=== PATIENT | female | born 1950 | race Caucasian/White ===

== ENCOUNTER 2018-01-30 15:37 | Inpatient (IN) | payer MEDICAID ==
[~2018-01-30] VITALS: Ht 172.7 cm; Wt 114.1 kg
--- NOTE | ~2018-01-30 | PR ---
[place], [place] PROGRESS NOTE NAME: MAICOL WELLER UNIT #: [id number] ROOM: 317 DOCTOR: MAYDA TOMLINSON MD BIRTHDATE: [birth year] DOS: 02/02/2018 CHIEF COMPLAINT: "I want to go back to [facility]." SUMMARY OF THE VISIT: The patient was interviewed in the dining area. At first she either ignored me purposefully or was sleeping. In either case, she did not respond at first, after prompting her repeatedly she eventually did begin to interact appropriately. She did state that she would like to go back to [facility] and is missing her friends there. She was very appropriate at no point where she vulgar or agitated. Nurses report similar behavior and a gradual trend toward improvement where her behavior has been much more compliant and less in need of redirection. Outwardly, she is also tolerating the medications well and other than some mild somnolence is noting no other side effects. I do not see the presence of extrapyramidal symptoms or tardive dyskinesia. MENTAL STATUS: She is alert and oriented. Mood does seem to be strongly trending towards euthymia. Affect is much more appropriate. There is no gypsy or hypomania. No gross psychosis. Memory for the most part is intact with mild gaps. PLAN: She received the initial dose of Invega Sustenna 234 mg IM on 01/31/2018. I will go ahead and order her secondary loading dose of Invega Sustenna 156 mg IM monthly, starting on 02/04/2018 that all allows us to monitor for risk, benefits throughout the weekend. If she continues to improve with the medications, we will be able to discharge back to [facility] when psychiatrically stable. MAYDA TOMLINSON MD CM:PNTRANS [id number] MAYDA TOMLINSON MD 02/02/181216 interface
--- NOTE | ~2018-01-30 | PR ---
[place], [place] PROGRESS NOTE NAME: MAICOL WELLER UNIT #: [id number] ROOM: 317 DOCTOR: MAYDA TOMLINSON MD BIRTHDATE: [birth year] DOS: 02/03/2018 INTERVAL NOTE CHIEF COMPLAINT: "I want to go back to [facility]." SUMMARY OF THE VISIT: The patient was interviewed in the dining area, at first she was sleeping, but she awoke easily and engaged readily in conversation. She has been very pleasant and bright. She has not been verbally or physically aggressive now for sometime and has been tolerating the current medication regimen well. She is anxious to return to [facility] and is homesick to be around her friends and the people who have worked with her. Outwardly, she is tolerating the medicines well. I see no evidence of sedation, somnolence, extrapyramidal symptoms or tardive dyskinesia. PLAN: At this point, she will get her secondary loading dose of Invega Sustenna of 156 mg IM tomorrow. I will then monitor over the next 24-48 hours for the development of side effects and further improvement. Should she tolerate this medication well, I will proceed with discharge back to [facility]. MAYDA TOMLINSON MD CM:PNTRANS [phone] MAYDA TOMLINSON MD 02/03/18 1656 interface
--- NOTE | ~2018-01-30 | PR ---
[place], [place] PROGRESS NOTE NAME: MAICOL WELLER UNIT #: [id number] ROOM: 317 DOCTOR: MAYDA TOMLINSON MD BIRTHDATE: [birth year] DOS: 02/01/2018 CHIEF COMPLAINT: "Everyone at [facility] are my friends, I love it there." SUMMARY OF THE VISIT: The patient was interviewed as she was sitting with the sitter in the group therapy room. The patient actually engaged in reasonable conversation. She was able to appropriately answer my questions, reporting that she slept well, had a good breakfast. She lives in [place] at a place called [facility] and everyone there is her friend. After conversing with me for some time, she did request that I leave, stating that I made her uncomfortable. I was accompanied by a female resident and med student and I did ask her if she would feel more comfortable talking to them. She asked them to leave as well, but in a polite manner. Outwardly, she does seem to be tolerating the medication regimen well. I see no tardive dyskinesia, extrapyramidal symptoms, sedation or somnolence. MENTAL STATUS: She is alert and oriented to person, place, seems to be approximate to time. Mood does seem to be trending toward euthymia already. Speech rate and pattern is much more pleasant and cooperative. There is no gypsy or hypomania noted. There are no voice psychotic symptoms. No threats were made and no agitation was present. Short term, intermediate and long-term memory for the most part seem relatively intact. PLAN: I will increase her Thorazine from 75 mg 3 times a day to 100 mg 3 times a day, continuing her other psychotropics, continue to engage in individual and buckley milieu activity with the plan to return to [facility] when psychiatrically stable. MAYDA TOMLINSON MD CM:PNTRANS [id number] MAYDA TOMLINSON MD 02/01/18 161 interface
--- NOTE | ~2018-01-30 | DS ---
[place], [place] DISCHARGE SUMMARY NAME: MAICOL WELLER UNIT #: [id number] ROOM: 317 DOCTOR: MAYDA TOMLINSON MD BIRTHDATE: [birth year] DOS: 02/06/2018 CHIEF COMPLAINT: The patient did not speak to me. HISTORY OF PRESENT ILLNESS: This is a 67-year-old white female known to me from her stay at [facility], a long-term care facility in [place] for the mentally retarded. The patient apparently has a lengthy history of schizoaffective disorder. She has become increasingly psychotic over the last 3-4 weeks prior to this admission. The patient has not been sleeping well. She has not been eating well nor has she attended to her ADLs. She has been very grossly psychotic and has been telling staff that she was going to go into their homes and kill their babies and their children. When attempted to be redirected, she would become extremely physically aggressive and would strike out at staff. She has broken multiple things well at the facility, kicking out windows, breaking the toilet and ruining a door. The patient has not responded to attempts to adjust her medications while in the facility and it was felt that she represented a substantial risk of harm to self and others, so she was admitted to the U to rule out further organic factors, to attempt to stabilize on medication, to engage in individual and buckley milieu activity, returning then to the least restrictive environment when psychiatrically stable. SUMMARY OF HOSPITAL COURSE: The patient was admitted to the unit where I had immediately discontinued her Haldol and increased her Valium from 10 mg twice a day to 10 mg 3 times a day. In lieu of the Haldol, I did start Thorazine 75 mg 3 times daily. This did seem to help her fairly quickly and she tolerated it well without sedation or somnolence. Eventually, I increased the Thorazine to 100 mg 3 times a day with excellent results. The patient did present on Invega, which she had been episodically compliant with well at the facility, to improve compliance, I did load her with Invega Sustenna 234 mg IM with a subsequent secondary loading dose of 156 mg as well. With this combination of dual antipsychotics, the patient dramatically improved. She became much more pleasant and bright. There was no agitation or aggression. There is no mood lability or hostility. She tolerated the medicines without sedation, somnolence, extrapyramidal symptoms or tardive dyskinesia. She had improved rapidly and had responded well enough that she could return back to [facility] on 02/06/2018. MENTAL STATUS AT DISCHARGE: The patient is alert and oriented with some time gaps. Mood was strongly trending towards euthymia. Affect was much more appropriate. There was no gypsy, hypomania or gross psychotic symptoms. Short term memory had some gaps, but otherwise she was intact. FINAL DIAGNOSES UPON DISCHARGE: Schizoaffective disorder. DISPOSITION: All of her prescriptions have been printed and will be sent with her. I will be her treating psychiatrist of record at [facility]. At the time of discharge, she was psychiatrically stable. There were no acute medical issues. [place], [place] DISCHARGE SUMMARY NAME: MAICOL WELLER UNIT #: [id number] ROOM: [facility] DOCTOR: MAYDA TOMLINSON MD BIRTHDATE: [birth year] MAYDA TOMLINSON MD CM:DISCHARG [id number] MAYDA TOMLINSON MD 02/06/18 1720 interface
--- NOTE | ~2018-01-30 | WRIGHTHP ---
[place], [place] PATIENT HISTORY AND PHYSICAL EXAM NAME: MAICOL WELLER UNIT #: [id number] ROOM: 317 DOCTOR: MAYDA TOMLINSON MD BIRTHDATE: [birth year] DOS: 01/31/2018 INITIAL PSYCHIATRIC EVALUATION CHIEF COMPLAINT: "The patient did not speak to me." HISTORY OF PRESENT ILLNESS: This is a 67-year-old white female known to me from her stay at [facility], a [facility] individuals. The patient apparently has a lengthy history of schizoaffective disorder. She has become increasingly psychotic over the last 3-4 weeks prior to this admission. During this period of time, she has not been sleeping well, eating well or attending to her ADLs. She has been grossly psychotic and has been telling staff that she is going to go to their homes to kill their babies and children. When attempted to be redirected, the patient has become extremely physically aggressive and she has struck out at staff. She has broken things and has thrown things at staff. She has kicked out windows and broken the toilet while at the [facility]. The patient has not responded to attempts to adjust her medications and in fact has actually gotten worse over the last week prior to this admission. She is admitted now to rule out any organic factors to attempt to re-stabilize on medication, to engage in individual and buckley milieu, if at all possible returning then to [facility] or the least restrictive environment when psychiatrically stable. PAST MEDICAL HISTORY: Remarkable for a long history of schizoaffective disorder, diabetes, hypertension, hyperlipidemia, left ventricular hypertrophy, lumbar radiculopathy, lumbar spinal stenosis, obesity, osteoarthritis. SOCIAL HISTORY: The patient does not drink alcohol. She has never smoked cigarettes or used smokeless tobacco products, nor does she use illicit drugs. ALLERGIES: She lists allergies to STRAWBERR[employer] EXTRACT. STRENGTHS: Good verbal skills, supportive living environment. WEAKNESSES: Long-term chronic psychiatric illness and poor coping skills. MENTAL STATUS: My mental status is limited this morning based on the patient's lack of cooperation. Initially, she was attempted to be interviewed as she was eating. She was shoveling food in her mouth rapidly and did not respond to me. Shortly after leaving her to go round on other individuals, I heard a very loud crash as she threw her breakfast tray at the window in the group therapy room. Nurses attempted to redirect her and she became physically aggressive with them. DIAGNOSES UPON ADMISSION: Schizoaffective disorder and mild mental retardation. PLAN: I have discontinued her Haldol. I will increase her Valium from 10 mg twice a day to 10 mg 3 times a day in an effort to decrease some of her anxiety and resultant agitation. In lieu of the Haldol, I will start Thorazine 75 mg 3 times a day and adjust the dose accordingly. The patient does have a history of being episodically noncompliant with all her medications, especially her [place], [place] PATIENT HISTORY AND PHYSICAL EXAM NAME: MAICOL WELLER UNIT #: [id number] ROOM: [facility] DOCTOR: MAYDA TOMLINSON MD BIRTHDATE: [birth year] psychotropics. She has been prescribed Invega 9 mg a day and has tolerated this well. I will load with Invega Sustenna 234 mg IM today to improve compliance and prognosis. Routine screening examinations revealed her to have a low vitamin D level of 15.4. I will treat with vitamin D 5000 International Units daily. We will engage in individual and buckley milieu activity, returning then to the least restrictive environment when psychiatrically stable. MAYDA TOMLINSON MD CM:HISPHYS:PATIENT HISTORY AND PHYSICAL EXAMINATION 8 100 MAYDA TOMLINSON MD 01/31/18 1001 interface
[2018-01-30] MEDS ORDERED: VICTOZA 2-0.6 MG/0.1 SQ (16:08)
[2018-01-30] MEDS ORDERED: LISINOPRIL-HCT1 EACH PO (16:09)
[2018-01-30] MEDS ORDERED: COLACE100 MG PO (16:10)
[2018-01-30] MEDS ORDERED: VALIUM5 MG PO (16:11)
[2018-01-30] MEDS ORDERED: LASIX20 MG PO (16:13)
[2018-01-30] MEDS ORDERED: TEGRETOL100 MG/5 M PO (16:13)
[2018-01-30] MEDS ORDERED: FISH OIL CONCE1 EACH PO (16:13)
[2018-01-30] MEDS ORDERED: ATORVASTATIN CA20 M1 PO (16:14)
[2018-01-30] MEDS ORDERED: MIRALAX119 GM PO (16:15)
[2018-01-30] MEDS ORDERED: NOVOLOG10 ML SQ (16:16)
[2018-01-30] MEDS ORDERED: METOPROLOL SUCC25 M2 PO (16:19)
[2018-01-30] MEDS ORDERED: METFORMIN HCL500 M2 PO (16:19)
[2018-01-30] MEDS ORDERED: LEVEMIR100 UNIT/1 SQ (16:20)
[2018-01-30] MEDS ORDERED: INVEGA6 MG PO (16:21)
[2018-01-30] MEDS ORDERED: ATARAX,VISTARIL50 MG PO (16:22)
[2018-01-30] MEDS ORDERED: Motrin,Rufen400 MG PO (16:23)
[2018-01-30] MEDS ORDERED: HALDOL5 MG/1 ML IJ ×2 (16:25)
[2018-01-30] MEDS ORDERED: DANDRUFF 1% SH325 ML T (16:26)
[2018-01-30 17:35] VITALS: BP 139/79
[2018-01-30 17:52] VITALS: BP 139/79
[2018-01-30 18:22] LABS: BASO # 0.1 10*3/uL (0.0-0.1); BASO % 0.5 % (0.0-1.0); EOS # 0.2 10*3/uL (0.0-0.4); EOS % 1.8 % (1.0-4.0); HEMATOCRIT 36.1 % (37.0-47.0); HEMOGLOBIN 11.8 g/dl (12.0-16.0); LYMPH # 2.3 10*3/uL (1.3-4.4); LYMPH % 21.4 % (27.0-41.0); MEAN CELL VOLUME 91.2 fl (81.0-99.0); MEAN CORPUSCULAR HGB 29.8 pg (27.0-31.0); MEAN CORPUSCULAR HGB CONC 32.7 g/dl (33.0-37.0); MEAN PLATELET VOLUME 9.6 fl (9.6-12.3); MONO % 8.9 % (3.0-9.0); NEUT # 7.2 10*3/uL (2.3-7.9); NEUT % 67.2 % (47.0-73.0); PLATELET COUNT AUTOMATED 292 10*3/uL (130-400); RED BLOOD COUNT 3.96 10*6/uL (4.10-5.10); RED CELL DISTRI WIDTH 12.7 % (0-14.5); WHITE BLOOD COUNT 10.7 10*3/uL (4.8-10.8)
[2018-01-30 18:38] LABS: ALBUMIN 3.3 gm/dl (3.1-4.5); ALKALINE PHOSPHATASE 153 U/L (45-117); BUN 31 mg/dl (7-24); CHLORIDE 103 mmol/L (98-107); CHOLESTEROL 150 mg/dL (<200); CREATININE 0.96 mg/dL (0.55-1.02); HDL CHOLESTEROL 36 mg/dl (40-60); LDL CHOLESTEROL 91 mg/dL (9-159); POTASSIUM 3.8 mmol/L (3.5-5.1); SGOT/AST 52 IU/L (3-35); SGPT/ALT 46 U/L (12-78); SODIUM 137 mmol/L (136-145); TOTAL PROTEIN 7.2 gm/dL (6.4-8.2); TRIGLYCERIDES 114 mg/dl (<150); VLDL CHOLESTEROL 23 mg/dL (6-40)
[2018-01-30 18:46] LABS: VITAMIN D, 25-HYDROXY 20.3 ng/mL (30-100)
[2018-01-30 18:50] LABS: CARBAMAZEPINE (TEGRETOL) TOTAL 5.9 ug/ml (4-12); THYROID STIM HORMONE (HS) 0.876 uIU/ml (0.358-4.75)
[2018-01-30 20:00] VITALS: BP 139/79
[2018-01-30 20:02] LABS: VITAMIN D, 25-HYDROXY 15.4 ng/mL (30-100)
[2018-01-31 08:04] VITALS: BP 132/75
[2018-01-31 20:01] VITALS: BP 126/64
[2018-02-01 08:56] VITALS: BP 118/68
[2018-02-01 09:25] VITALS: BP 130/74
[2018-02-01 18:47] LABS: BILIRUBIN NEGATIVE (NEGATIVE); BLOOD NEGATIVE (NEGATIVE); CLARITY CLEAR (CLEAR); COLOR YELLOW (YELLOW); GLUCOSE 1+ (NEGATIVE); KETONE NEGATIVE (NEGATIVE); LEUKO ESTERASE NEGATIVE (NEGATIVE); NITRITE NEGATIVE (NEGATIVE); SPECIFIC GRAVITY 1.015 (1.005-1.030); UROBILINOGEN 0.2 E.U./dl (0.2-1.0)
[2018-02-01 18:53] LABS: BACTERIA 2+; RBC 0-2 rbc/hpf (0-2)
[2018-02-01 20:00] VITALS: BP 125/60
[2018-02-02 06:32] VITALS: BP 124/65
[2018-02-02 20:23] VITALS: BP 90/52
[2018-02-03 01:00] VITALS: BP 105/62; BP 118/65
[2018-02-03 07:58] VITALS: BP 122/74
[2018-02-03 20:00] VITALS: BP 110/83
[2018-02-04 07:26] VITALS: BP 129/67
[2018-02-04 19:55] VITALS: BP 103/60
[2018-02-05 07:47] VITALS: BP 109/64
[2018-02-05 19:57] VITALS: BP 112/62
[2018-02-06 08:00] VITALS: BP 136/69
[2018-02-06] MEDS ORDERED: CARBAMAZEPINE100 MG PO (10:41)
[2018-02-06] MEDS ORDERED: THORAZINE100 MG PO (10:41)
[2018-02-06] MEDS ORDERED: DIAZEPAM5 MG PO (10:41)
[2018-02-06] MEDS ORDERED: INVEGA9 MG PO (10:41)
[2018-02-06] MEDS ORDERED: INVEGA SUSTENN156 MG IM (10:41)
[2018-02-06] MEDS ORDERED: BENZTROPINE MESY1 MG PO (10:41)
== END 2018-02-06 13:54 | DRG 885 ==
LOC: 3N 15:37
PROVIDERS: Psychiatry & Neurology Psychiatry
DX: F25.9 Schizoaffective disorder, unspecified (principal); F41.9 Anxiety disorder, unspecified; M16.12 Unilateral primary osteoarthritis, left hip; M54.16 Radiculopathy, lumbar region; E78.5 Hyperlipidemia, unspecified; K59.09 Other constipation; E11.65 Type 2 diabetes mellitus with hyperglycemia; D64.9 Anemia, unspecified; R29.6 Repeated falls; M19.90 Unspecified osteoarthritis, unspecified site; M48.061 Spinal stenosis, lumbar region without neurogenic claudication; I10 Essential (primary) hypertension; F31.9 Bipolar disorder, unspecified; Z87.440 Personal history of urinary (tract) infections; Z91.018 Allergy to other foods; Z79.4 Long term (current) use of insulin